=== PATIENT | male | born 2000 | race Two or more races ===

== ENCOUNTER 2022-11-08 01:14 | Emergency (ER) | payer OTHER ==
[~2022-11-08] VITALS: Ht 182.9 cm; Wt 104.3 kg
--- NOTE | 2022-11-08 01:25 | NUR ---
BIBS FOR REFILL ON INSULIN. PATIENT IS COMPLAINING OF HIGH SUGAR LEVEL >500 AND CAUSING HIM SOME BLURRY VISION. PATIENT IS AAOX4. ABLE TO MAKE NEEDS KNOWN. VITALS CHECKED.
[2022-11-08] MEDS ORDERED: INSULIN ASPART/LISPRO 100 UNIT/ML CARTRIDGE SQ STA (01:49)
[2022-11-08] MEDS ORDERED: INSULIN LISPRO/ASPART 100 UNIT/ML CARTRIDGE SQ ONE (02:13)
[2022-11-08] MEDS ORDERED: METF-440 PO (02:36)
[2022-11-08] MEDS ORDERED: INSU100V7 SQ (02:36)
[2022-11-08] MEDS ORDERED: INSU100I4 SQ (02:36)
--- NOTE | 2022-11-08 03:23 | NUR ---
ACCUCHECK DONE. LATEST RESULT 378mg/dl. MD AWARE
--- NOTE | 2022-11-08 03:24 | NUR ---
Patient discharged to home in stable condition. Written and verbal after care instructions given. Patient verbalizes understanding of instruction.
[2022-11-08 03:25] VITALS: BP 142/98
== END 2022-11-08 03:25 | disposition home or self-care (01) ==
LOC: ER 01:24
DX: Z76.0 Encounter for issue of repeat prescription (principal); E11.65 Type 2 diabetes mellitus with hyperglycemia; Z79.899 Other long term (current) drug therapy
CPT/HCPCS: 99283; 96372; 82962 ×2; J1815